=== PATIENT | male | born 2000 | race Hispanic/Latino ===

== ENCOUNTER 2024-05-26 17:23 | Emergency (ER) | payer MEDICAID ==
[~2024-05-26] VITALS: Ht 185.4 cm; Wt 85.7 kg
[2024-05-26 17:24] VITALS: BP_DIAS 91
--- NOTE | 2024-05-26 17:39 | ERN ---
ED Note History of Present Illness Stated Complaint: FEVER, SORE THROAT Chief Complaint: Fever Time Seen by MD: 17:25 Time Seen by Midlevel: 17:25 Dictation: The patient is a 23-year-old male with a history of autism, nonverbal, schizophrenia who presents to the emergency department with mother with complaints of fever, sore throat, nasal congestion onset three days ago. Mother denies any nausea, vomiting, diarrhea, cough. Allergies: Coded Allergies: No Known Allergies (Unverified Allergy, Unknown, 05/26/24) Past Medical History Past Medical History: Anxiety, Depression, Schizophrenia, Other Additional Past Medical Hx: AUTISM NON VERBAL, PTSD, OCD Surgical History: None RN Note Reviewed/Agreed w/PFSH: Yes Review of System Dictation Constitutional: Negative for chills, and weight loss. Positive for fever Eyes: Negative for injury, pain,redness, and discharge ENT: Negative for injury,pain or swelling. Positive for nasal congestion, positive for sore throat Cardiovascular: Negative for chest pain, palpitations, and edema Respiratory: Negative for shortness of breath, cough, and wheezing, Abdomen/GI: Negative for abdominal pain, nausea, vomiting, diarrhea, and constipation Back: Negative for injury and pain : Negative for injury, bleeding and discharge MS/Extremity: Negative for injury and deformity Skin: Negative for rash, and discoloration Neuro: Negative for headache, weakness, numbness, tingling, and seizure Psych: Negative for suicide ideation, homicidal ideation, and hallucinations Initial Vital Sign VS Vital Signs Date Time Temp Pulse Resp B/P (MAP) Pulse Ox O2 Delivery O2 Flow Rate FiO2 05/26/24 17:24 98.2 98 22 173/91 98 Room Air 0 05/26/24 18:11 21 Physical Exam Dictation Vital Signs reviewed General Appearance: Alert, no acute distress, well developed, nourished. Head and Face: non-traumatic. Eyes: PERRL, pink conjunctivas, eyelid no trauma, anterior chamber with arcus senilis. Ears: Pinnas intact and no signs of trauma or erythema ear canals clear and no discharge TM no erythema Nose: No discharge, no bleeding. Oropharynx: Mouth normal, tongue pink. pharynx clear,no erythema, tonsils no exudates, no abscesses noted, mucous membrane moist Neck: Supple, non-tender, no thyromegaly, no masses, no JVD, no bruits Breast:Deferred Chest:No tenderness, no crepitus, no paradoxical movement, no retractions Lungs:Clear, well-ventilated, symmetric, no rales, no wheezing, no rhonchi, no stridor, good breath sounds bilaterally Heart: Regular rate, regular rhythm, no murmur, no gallops Vascular: no peripheral edema, Abdomen: Soft, positive bowel sounds, nondistended, no guarding, nontender, no rebound, no masses no hepatomegaly, no splenomegaly, no Manrique's sign, no hernias. Rectal: Deferred Genital: Deferred Neurological: motor function intact, sensory function intact Musculoskeletal: Neck nontender, full range of motion, back nontender, full range of motion, Extremities: nontender, full range of motion Skin: Color pink, dry, no turgor, no rash, no lacerations, no abrasions, no contusions. Lymphatic: Deferred Results (Laboratory/Radiology) Laboratory/Radiology Laboratory Tests Test 05/26/24 17:32 Influenza Type A Antigen Negative For Type A Influenza Type B Antigen Negative For Type B SARS-CoV-2 Antigen (Rapid) PRESUMPTIVE NEGATIVE Group A Streptococcus Rapid negative (NEGATIVE) Labs Reviewed?: Yes ED Course ED Course Orders Procedure Category Date Status Time Influenza Type A & B, LAB 05/26/24 Complete Rapid 17:35 Covid19 (Sars Antigen LAB 05/26/24 Complete Rapid) 17:35 Rapid (Group A Strep) LAB 05/26/24 Complete 17:35 Ibuprofen 600 Mg PHA 05/26/24 Complete Tablet (Motrin) 18:30 Current Medications Medications (Trade) Dose Ordered Sig/Yina Route PRN Reason Start Time Stop Time Status Last Admin Dose Admin Ibuprofen (moTRIN) 600 mg ONCE ONCE PO 05/26/24 18:30 05/26/24 18:31 DC 05/26/24 18:25 Vital Signs Date Time Temp Pulse Resp B/P (MAP) Pulse Ox O2 Delivery O2 Flow Rate FiO2 05/26/24 18:11 98.2 88 20 70/ 98 Room Air* 0 21 05/26/24 17:24 98.2 98 22 173/91 98 Room Air 0 Medical Decision Making MDM The patient is a 23-year-old male with a history of autism, nonverbal, schizophrenia who presents to the emergency department with mother with complaints of fever, sore throat, nasal congestion onset three days ago. Mother denies any nausea, vomiting, diarrhea, cough. Differential diagnosis: Strep, pharyngitis, flu, COVID Respiratory swabs negative. Patient continues in no distress will be discharged to follow up with PCP. Need for hospitalization: Patient does not meet criteria for hospitalization. There are no social concerns with this patient. DX & DISP Disposition: Discharge Departure Impression: Primary Impression: URI (upper respiratory infection) Condition: Stable Additional Instructions: FOLLOW-UP WITH PRIMARY CARE PROVIDER IN 1 TO 2 DAYS. TAKE MEDICATIONS DIRECTED HERE IN THE EMERGENCY ROOM. OKAY TO CONTINUE HOME MEDICATIONS UNLESS OTHERWISE DISCUSSED DURING YOUR VISIT IN THE EMERGENCY ROOM TODAY. RETURN TO YOUR NEAREST EMERGENCY ROOM IF SYMPTOMS WORSEN OR IF THERE IS NO IMPROVEMENT. CALL 911 IF YOU NEED IMMEDIATE ASSISTANCE. TAKE TYLENOL OR MOTRIN [id number] NEEDED AND IF NO CONTRAINDICATIONS ARE PRESENT. INCREASE ORAL HYDRATION. A WOUND CULTURE OR URINE CULTURE WAS ORDERED HERE IN THE EMERGENCY ROOM DEPARTMENT PLEASE FOLLOW-UP WITH PRIMARY CARE PROVIDER AND ADVISE THEM TO GET REPEAT PORTS FROM OUR FACILITY. IF YOU HAD ANY LUIS ALFREDO WRAP/SPLINTS THAT WERE APPLIED HERE, PLEASE DO NOT REMOVE THEM UNTIL YOU SEE YOUR PRIMARY CARE OR SPECIALTY. Time of Disposition: 18:06 I have reviewed the case, and I agree with, Diagnosis and Plan ATTESTATION BY PHYSICIAN I PERFORMED THE SUBSTANTIVE PORTION OF THE VISIT. I HAVE REVIEWED AND PERSONALLY MADE AND APPROVED THE MANAGEMENT PLAN THAT IS DOCUMENTED IN THE NOTE BY MYSELF FOR THE A PP. I ACKNOWLEDGED FOR RESPONSIBILITY FOR THE PATIENT'S MANAGEMENT PLAN. YOGI NUNEZ May 26, 2024 17:39 JUAN FRANCISCO QUINN MD May 26, 2024 18:57
[2024-05-26 17:53] LABS: RAPID GROUP A STREP negative (NEGATIVE)
[2024-05-26 18:02] LABS: COVID19 (SARS ANTIGEN RAPID) PRESUMPTIVE NEGATIVE (NEGATIVE); INFLUENZA TYPE A Negative For Type A (NEGATIVE); INFLUENZA TYPE B Negative For Type B (NEGATIVE)
[2024-05-26 18:11] VITALS: BP_SYST 70; PULSE 88; RESP 20; TEMP 98.2; O2SAT 98
[2024-05-26] MEDS: ibuPROFEN 600 MG TABLET PO ONE (18:25)
== END 2024-05-26 18:14 | disposition home or self-care (01) ==
LOC: EDH 17:23
DX: J06.9 Acute upper respiratory infection, unspecified (principal); F41.9 Anxiety disorder, unspecified; F20.9 Schizophrenia, unspecified; Z20.822 Contact with and (suspected) exposure to COVID-19
CPT/HCPCS: 87426; 87804; 87880; 99283

== ENCOUNTER 2024-08-31 12:34 | Emergency (ER) | payer MEDICAID ==
[~2024-08-31] VITALS: Ht 185.4 cm; Wt 99.8 kg
--- NOTE | 2024-08-31 13:17 | ERN ---
ED Note History of Present Illness Stated Complaint: FEVER, HEADACHE,EYE PAIN X 3 DAYS Chief Complaint: Fever Time Seen by MD: 12:44 Time Seen by Midlevel: 12:50 Dictation: Mr. Ashley is a 23 year old male with history of depression, PTSD, anxiety, OC D, and autism who presented to the emergency department this afternoon for evaluation fever. Patient is nonverbal but his caregiver states for three days he has been experiencing fever, chills, headache, body aches, and painful cough. She states she recently tested positive for pharyngitis and is concerned he may have this as well. She states that he has been eating and drinking well. There is no reported chest pain, shortness of breath, abdominal pain, nausea, vomiting, diarrhea, dysuria, or dizziness. 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 Reports fever and chills EYES: Patient denies any visual symptoms. EARS, NOSE, AND THROAT: No difficulties with hearing. No symptoms of rhinitis or sore throat. CARDIOVASCULAR: Patient denies chest pains, palpitations, orthopnea and paroxysmal nocturnal dyspnea. RESPIRATORY: No dyspnea on exertion, no wheezing reports cough and congestion GI: No nausea, vomiting, diarrhea, constipation, abdominal pain, hematochezia or melena. : No urinary hesitancy or dribbling. No nocturia or urinary frequency. No abnormal urethral discharge. MUSCULOSKELETAL: Reports body aches NEUROLOGIC: No chronic headaches, no seizures. Patient denies numbness, tingling or weakness. Reported headache PSYCHIATRIC: Patient denies problems with mood disturbance. No problems with anxiety. ENDOCRINE: No excessive urination or excessive thirst. DERMATOLOGIC: Patient denies any rashes or skin changes. Initial Vital Sign VS Vital Signs Date Time Temp Pulse Resp B/P (MAP) Pulse Ox O2 Delivery O2 Flow Rate FiO2 08/31/24 12:54 101.8 109 18 142/84 100 Room Air 0 08/31/24 13:15 21 Physical Exam Dictation Vital signs: Reviewed. Febrile with temp 101.8 Constitutional: No acute distress. Accompanied by mother Head/Face: Normocephalic, atraumatic. Eyes: Periorbital areas with no swelling, redness, or edema. Lids and lashes are normal. Conjunctival injection is absent. Sclera anicteric. Pupils equal, round, reactive to light. ENT: Pinnas intact and no signs of trauma or erythema. Ear canals clear and no discharge. TMs no erythema. No nasal discharge or bleeding noted. Oropharynx with no exudate, redness, swelling, masses, exudates, or evidence of obstruction. Uvula midline. Mucous membranes slightly dry. Neck: Trachea midline, no masses palpated, and no cervical lymphadenopathy. No swelling. Supple, full range of motion. Chest/Axilla: No tenderness, no crepitus, no paradoxical movement, no retractions. Cardiovascular: Regular rate, regular rhythm, no murmur, no gallops. Symmetric pulses. No peripheral edema. Respiratory: Respirations even and unlabored. Lung sounds clear; no wheezes, rales lung sounds with rhonchi. noted cough, nonproductive Room air SpO2 98% Gastrointestinal: Inspection is normal. No distention is appreciated. Bowel sounds are normal. No mass or organomegaly . There is no tenderness. No rebound. No rigidity. No voluntary or involuntary guarding. No Manrique's sign. Neurological: Normal speech, gross motor function intact, gross sensory function intact. No focal weakness/Paresthesia. Musculoskeletal/Extremities: All extremities have full range of motion, no pain or tenderness on palpation. Symmetric pulses. Integumentary: Intact. Skin is normal color, warm and dry. Cap refill less than 3 seconds. Results (Laboratory/Radiology) Laboratory/Radiology Laboratory Tests Test 08/31/24 13:00 Influenza Type A Antigen Negative For Type A Influenza Type B Antigen Negative For Type B SARS-CoV-2, RNA, NAAT NEGATIVE SARS CoV-2 Group A Streptococcus Rapid negative (NEGATIVE) Labs Reviewed?: Yes ED Course ED Course Orders Procedure Category Date Status Time Covid Rna Naat LAB 08/31/24 Complete 12:57 Rapid (Group A Strep) LAB 08/31/24 Complete 12:57 Influenza Type A & B, LAB 08/31/24 Complete Rapid 12:57 Ibuprofen 600 Mg PHA 08/31/24 Complete Tablet (Motrin) 13:30 Current Medications Medications (Trade) Dose Ordered Sig/Yina Route PRN Reason Start Time Stop Time Status Last Admin Dose Admin Ibuprofen (moTRIN) 600 mg ONCE ONCE PO 08/31/24 13:30 08/31/24 13:31 DC 08/31/24 13:39 Vital Signs Date Time Temp Pulse Resp B/P (MAP) Pulse Ox O2 Delivery O2 Flow Rate FiO2 08/31/24 13:39 100.0 08/31/24 13:15 101.8 66 20 128/88 100 Room Air* 0 21 08/31/24 12:54 101.8 109 18 142/84 100 Room Air 0 Uneventful ED course. Upon arrival temperature 101.8. He received dose i buprofen and temp decreased to 100. He is taking p.o. fluids well. Laboratory findings as noted below. Influenza A/B, COVID, and strep are negative. He continues with dry persistent cough; suspect bronchitis. Discussed findings with patient's mother as well as follow up care. Medical Decision Making MDM MDM: Differential diagnosis: influenza A/B, COVID, strep, bronchitis Rationale: Tests considered and ordered secondary to shared decision making include: Previous outside records reviewed: Old ER visits. Risk of complication and/or morbidity or mortality of patient management: None Medications-Per medication reconciliation Need for hospitalization: Patient does not meet criteria for hospitalization. Need for emergency major/minor surgery: No There are no social concerns with this patient. Prescription drug management: Guaifenesin, azithromycin, ibuprofen Prescriptions will include symptomatic care Patient's prior external medical records from other ER visits were reviewed by me as indicated. Prior testing and results from previous visits were reviewed. Prior tests were taken into account with medical decision making and resource utilization, independent historian/historians were used to obtain complete medical history. I independently interpreted the test that were performed, results were reviewed by me and considered findings on radiology if ordered. Medical management and examination interpretation discussions were had by me with other qualified healthcare professionals as indicated for the patient's care. DX & DISP Disposition: Discharge Departure Impression: Primary Impression: URI (upper respiratory infection) Additional Impressions: Bronchitis, Fever Condition: Stable Scripts Guaifenesin/Dextromethorphan (Guaifenesin-Dm 200-20 mg/10 ml) 100 Mg-10 Mg/5 Ml Liquid 10 ML PO q8 hours prn for cough, #160 ML 0 Refills Prov: KASSIE SCHULTZ NP 08/31/24 Ibuprofen (Ibuprofen) 600 Mg Tablet 600 MG PO Q6H PRN for PAIN, #10 TAB 0 Refills Prov: KASSIE SCHULTZ NP 08/31/24 Azithromycin (Azithromycin) 250 Mg Tablet 250 MG PO 2 day 1, then 1 q d, #6 TAB 0 Refills Prov: KASSIE SCHULTZ NP 08/31/24 Additional Instructions: Rest. Plenty of fluids. Start azithromycin with two tablets today then one tablet daily for the next four days. May take Tylenol or ibuprofen every 6 hours as needed for discomfort or fever. Guaifenesin DM for cough every 8 hours as needed. Follow up with your primary care physician in the next 2-3 days. Return to the emergency department for any worsening of symptoms or concerns. Referrals: ANA LUISA MONROE MD (PCP) Time of Disposition: 15:03 KASSIE SCHULTZ NP Aug 31, 2024 13:17
[2024-08-31] MEDS: ibuPROFEN 600 MG TABLET PO ONE (13:39)
[2024-08-31 13:49] LABS: RAPID GROUP A STREP negative (NEGATIVE)
[2024-08-31 13:53] LABS: SARS-CoV-2, RNA, NAAT NEGATIVE SARS CoV-2 (NEGATIVE)
[2024-08-31 13:58] LABS: INFLUENZA TYPE A Negative For Type A (NEGATIVE); INFLUENZA TYPE B Negative For Type B (NEGATIVE)
[2024-08-31] MEDS ORDERED: GUAIFDM PO (15:02)
[2024-08-31] MEDS ORDERED: IBUP-2070 PO (15:02)
[2024-08-31] MEDS ORDERED: AZIT250T9 PO (15:02)
[2024-08-31 15:25] VITALS: BP 124/84; PULSE 70; RESP 20; TEMP 98.9; TEMP 99.8; O2SAT 100
== END 2024-08-31 15:27 | disposition home or self-care (01) ==
LOC: EDH 12:34
DX: J40 Bronchitis, not specified as acute or chronic (principal); J06.9 Acute upper respiratory infection, unspecified; F20.9 Schizophrenia, unspecified; F42.9 Obsessive-compulsive disorder, unspecified; F84.0 Autistic disorder; Z20.822 Contact with and (suspected) exposure to COVID-19
CPT/HCPCS: 87635; 87804; 87880; 99283

== ENCOUNTER 2024-10-05 17:23 | Emergency (ER) | payer MEDICAID ==
[~2024-10-05] VITALS: Ht 185.4 cm; Wt 95.3 kg
[~2024-10-05 17:23] MED LIST: AZIT250T9 PO; GUAIFDM PO; IBUP-2070 PO
--- NOTE | 2024-10-05 17:37 | ERN ---
ED Note History of Present Illness Stated Complaint: SORE THROAT,ANDERSON,CONGESTION Chief Complaint: Multiple Complaints Time Seen by MD: 17:31 Dictation: PATIENT IS A 24-YEAR-OLD MALE COMING IN WITH FLU-LIKE SYMPTOMS TO INCLUDE BODY ACHES, SORE THROAT WITH PAINFUL SWALLOWING DRY COUGH FOR THE LAST 2-3 DAYS. NO NAUSEA VOMITING NO DIARRHEA NO LOSS OF TASTE OR SMELL. PATIENT HAS A PRIMARY CARE DOCTOR IN [facility] NOT SEEN HIM. Allergies: Coded Allergies: No Known Allergies (Unverified Allergy, Unknown, 05/26/24) Home Meds Active Scripts Guaifenesin/Dextromethorphan (Guaifenesin-Dm 200-20 mg/10 ml) 100 Mg-10 Mg/5 Ml Liquid, 10 ML PO q8 hours prn for cough, #160 ML 0 Refills Prov:KASSIE SCHULTZ G[place] COOK 08/31/24 Ibuprofen (Ibuprofen) 600 Mg Tablet, 600 MG PO Q6H PRN for PAIN, #10 TAB 0 Refills Prov:KASSIE SCHULTZ G[place] COOK 08/31/24 Azithromycin (Azithromycin) 250 Mg Tablet, 250 MG PO 2 day 1, then 1 q d, #6 TAB 0 Refills Prov:KASSIE SCHULTZ GALLEY COOK 08/31/24 Past Medical History Past Medical History: Anxiety, Depression, Schizophrenia, Other Additional Past Medical Hx: AUTISM NON VERBAL, PTSD, OCD Surgical History: None RN Note Reviewed/Agreed w/PFSH: Yes Review of System Dictation CONSTITUTIONAL: NEGATIVE EXCEPT FOR HPI FEVER CHILLS HEAD/FACE: NEGATIVE EXCEPT FOR HPI EENT: NEGATIVE EXCEPT FOR HPI SORE THROAT RESPIRATORY: NEGATIVE EXCEPT FOR HPI COUGH GASTROINTESTINAL/ABDOMINAL: NEGATIVE EXCEPT FOR HPI GENITOURINARY: NEGATIVE EXCEPT FOR HPI MUSCULOSKELETAL: NEGATIVE EXCEPT FOR HPI INTEGUMENTARY: NEGATIVE EXCEPT FOR HPI NEUROLOGICAL/PSYCH: NEGATIVE EXCEPT FOR HPI HEMATOLOGIC/LYMPHATIC: NEGATIVE EXCEPT FOR HPI ALL SYSTEMS NEGATIVE, EXCEPT NOTED ABOVE. 13 POINT REVIEW OF SYSTEMS ASSESSED AND ALL NEGATIVE EXCEPT FOR ABOVE. Initial Vital Sign VS Vital Signs Date Time Temp Pulse Resp B/P (MAP) Pulse Ox O2 Delivery O2 Flow Rate FiO2 10/05/24 17:31 98.1 71 18 152/72 97 Room Air Physical Exam Dictation VITAL SIGNS REVIEWED GENERAL APPEARANCE: ALERT, ORIENTED X 3, NO ACUTE DISTRESS, WELL DEVELOPED, NOURISHED. HEAD AND FACE: NON-TRAUMATIC. EYES: PERRL, PINK CONJUNCTIVAS, EYELID NO TRAUMA, ANTERIOR CHAMBER WITH ARCUS SENILIS. EARS: PINNAS INTACT AND NO SIGNS OF TRAUMA OR ERYTHEMA EAR CANALS CLEAR AND NO DISCHARGE TM NO ERYTHEMA NOSE: NO DISCHARGE, NO BLEEDING. OROPHARYNX: MOUTH NORMAL, TONGUE PINK, PHARYNX CLEAR MILD PHARYNGEAL ERYTHEMA, TONSILS NO EXUDATES, NO ABSCESSES NOTED, MUCOUS MEMBRANE MOIST UVULA MIDLINE, VOICE IS CLEAR NECK: SUPPLE, NON-TENDER, NO THYROMEGALY, NO MASSES, NO JVD, NO BRUITS BREAST:DEFERRED CHEST:NO TENDERNESS, NO CREPITUS, NO PARADOXICAL MOVEMENT, NO RETRACTIONS LUNGS:CLEAR, WELL-VENTILATED, SYMMETRIC, NO RALES, NO WHEEZING, NO RHONCHI, NO STRIDOR, GOOD BREATH SOUNDS BILATERALLY HEART: REGULAR RATE, REGULAR RHYTHM, NO MURMUR, NO GALLOPS VASCULAR: NO PERIPHERAL EDEMA, ABDOMEN: SOFT, POSITIVE BOWEL SOUNDS, NONDISTENDED, NO GUARDING, NONTENDER, NO REBOUND, NO MASSES NO HEPATOMEGALY, NO SPLENOMEGALY, NO KIMBROUGH'S SIGN, NO HERNIAS. RECTAL: DEFERRED GENITAL: DEFERRED NEUROLOGICAL: NORMAL SPEECH, MOTOR FUNCTION INTACT, SENSORY FUNCTION INTACT MUSCULOSKELETAL: NECK NONTENDER, FULL RANGE OF MOTION, BACK NONTENDER, FULL RANGE OF MOTION, EXTREMITIES: NONTENDER, FULL RANGE OF MOTION SKIN: COLOR PINK, DRY, NO TURGOR, NO RASH, NO LACERATIONS, NO ABRASIONS, NO CONTUSIONS. LYMPHATIC: DEFERRED Results (Laboratory/Radiology) Laboratory/Radiology Laboratory Tests Test 10/05/24 17:34 Influenza Type A Antigen Negative For Type A Influenza Type B Antigen Negative For Type B SARS-CoV-2 Antigen (Rapid) PRESUMPTIVE NEGATIVE Group A Streptococcus Rapid negative (NEGATIVE) Labs Reviewed?: Yes ED Course ED Course Orders Procedure Category Date Status Time Rapid (Group A Strep) LAB 10/05/24 Complete 17:33 Covid19 (Sars Antigen LAB 10/05/24 Complete Rapid) 17:33 Influenza Type A & B, LAB 10/05/24 Complete Rapid 17:33 Vital Signs Date Time Temp Pulse Resp B/P (MAP) Pulse Ox O2 Delivery O2 Flow Rate FiO2 10/05/24 17:31 98.1 71 18 152/72 97 Room Air 1812/ALL LABS NEGATIVE. I WILL TREAT PATIENT EMPIRICALLY ACUTE PHARYNGITIS UNSPECIFIED AND HAVE HIM SEE HIS DOCTOR ON TUESDAY. Medical Decision Making MDM MEDICAL DISCHARGE MAKING BASED ON SWABS FOR FLU COVID AND STREP. ALL SWABS NEGATIVE PATIENT WE WILL BE TREATED FOR ACUTE PHARYNGITIS UNSPECIFIED WITH AUGMENTIN TOLD TO SEE HIS PRIMARY CARE DOCTOR TUESDAY DX & DISP Disposition: Discharge Departure Impression: Primary Impression: Acute pharyngitis, unspecified Condition: Stable Scripts Amoxicillin/Potassium Clav (Amox Tr-K Clv 875-125 mg Tab) 875 Mg-125 Mg Tablet 1 EACH PO BID for 10 Days, #20 TAB 0 Refills Prov: STERLING PERALES NP 10/05/24 Additional Instructions: FOLLOW-UP WITH PRIMARY CARE PROVIDER IN 1 TO 2 DAYS. TAKE MEDICATIONS DIRECTED HERE IN THE EMERGENCY ROOM. OKAY TO CONTINUE HOME MEDICATIONS UNLESS OTHERWISE DISCUSSED DURING YOUR VISIT IN THE EMERGENCY ROOM TODAY. RETURN TO YOUR NEAREST EMERGENCY ROOM IF SYMPTOMS WORSEN OR IF THERE IS NO IMPROVEMENT. CALL 911 IF YOU NEED IMMEDIATE ASSISTANCE. TAKE TYLENOL OR MOTRIN [id number] NEEDED AND IF NO CONTRAINDICATIONS ARE PRESENT. INCREASE ORAL HYDRATION. A WOUND CULTURE OR URINE CULTURE WAS ORDERED HERE IN THE [facility] ROOM DEPARTMENT PLEASE FOLLOW-UP WITH PRIMARY CARE PROVIDER AND ADVISE THEM TO GET REPEAT PORTS FROM OUR FACILITY. IF YOU HAD ANY LUIS ALFREDO WRAP/SPLINTS THAT WERE APPLIED HERE, PLEASE DO NOT REMOVE THEM UNTIL YOU SEE YOUR PRIMARY CARE OR SPECIALTY. TAKE ANTIBIOTICS DIRECTED UNTIL GONE. , INCREASE YOUR WATER INTAKE. , SEE YOUR PRIMARY CARE DOCTOR TUESDAY WITHOUT FAIL FOR FOLLOW UP AND MANAGE Referrals: ANA LUISA MONROE MD (PCP) Time of Disposition: 18:14 I have reviewed the case, and I agree with, Diagnosis and Plan STERLING PERALES NP Oct 05, 2024 17:37
[2024-10-05 17:54] LABS: RAPID GROUP A STREP negative (NEGATIVE)
[2024-10-05 18:04] LABS: COVID19 (SARS ANTIGEN RAPID) PRESUMPTIVE NEGATIVE (NEGATIVE); INFLUENZA TYPE A Negative For Type A (NEGATIVE); INFLUENZA TYPE B Negative For Type B (NEGATIVE)
[2024-10-05] MEDS ORDERED: AMOX1TAB16 PO (18:15)
[2024-10-05 20:34] VITALS: BP 135/75; PULSE 86; RESP 20; TEMP 98.3; O2SAT 100
== END 2024-10-05 20:42 | disposition home or self-care (01) ==
LOC: EDH 17:23
DX: J02.9 Acute pharyngitis, unspecified (principal); F20.9 Schizophrenia, unspecified; F42.9 Obsessive-compulsive disorder, unspecified; F84.0 Autistic disorder; Z20.822 Contact with and (suspected) exposure to COVID-19; Z79.899 Other long term (current) drug therapy
CPT/HCPCS: 87426; 87804; 87880; 99283